=== PATIENT | female | born 1940 | race Caucasian/White ===

== ENCOUNTER 2017-08-16 08:56 | Inpatient (IN) | payer MEDICARE, OTHER ==
[2017-08-16] MEDS ORDERED: Magnesium Sulfate 2 GM/100 ML BAG ONE (09:10)
[2017-08-16] MEDS ORDERED: Lorazepam 2 MG/ML VIAL ONE (09:13)
[2017-08-16 09:16] LABS: pH, Arterial 7.26 (7.35-7.45)
[2017-08-16 09:17] LABS: Actual Bicarbonate (HCO3a) 28.9 mEq/L (22-26); Base Excess (BEa) 0.5 mEq/L (0 (+/-) 2.5); CO2 Tension 66.1 mmHg (35.0-45.0); O2 Tension (PaO2) 140.7 mmHg (80.0-100.0)
[2017-08-16 09:18] LABS: ALV-art Gradient 61.875 (0-20); Analyzer IN Cardio ER; Calcium, Ionized 1.2 mmol/L (1.12-1.30); Puncture Site RBA
[2017-08-16 09:32] LABS: #Basophils 0.1 thou/uL (0.0-0.2); #Lymphocytes 2.5 thou/uL (1.20-3.40); #Monocytes 1.1 thou/uL (0.11-0.59); #Neutrophils 13.1 thou/uL (1.40-6.50); %Basophils 0.4 % (0.0-1.0); %Eosinophils 0.1 % (0.0-10.0); %Lymphocytes 14.7 % (21.0-51.0); %Monocytes 6.8 % (0.0-10.0); %Neutrophils 77.9 % (42.0-75.0); Mean Corpuscular HGB CONC 31.8 g/dL (32.0-36.0); Mean Corpuscular Hemoglobin 29.8 pg (27.0-31.0); Mean Corpuscular Volume 93.7 fl (81.0-99.0); Mean Platelet Volume 8.1 fL (7.4-10.4); Platelet Count 305 thou/uL (130-400); RBC Distribution Width 12.4 % (11.5-14.5); Red Blood Cell (RBC) Count 4.02 mill/uL (4.20-5.40); White Blood Cell (WBC) Count 16.8 thou/uL (4.8-10.8)
[2017-08-16 09:57] LABS: Troponin I 0.015 ng/mL (< 0.028)
--- NOTE | 2017-08-16 10:13 | RAD ---
AP VIEW CHEST: Date: 08/16/17 HISTORY: 77-year-old female who presents with history of low oxygen saturation and history of COPD. COMPARISON: 07/20/16. FINDINGS: AP view of chest demonstrates calcification and ectasia of the aorta. There is some mild to moderate pulmonary vascular congestion seen. No evidence of effusions, pneumonia, or pneumothorax seen. IMPRESSION: Pulmonary vascular congestion. Otherwise, unremarkable AP view chest. POS: [facility]
[2017-08-16 10:16] LABS: CKMB 7.4 ng/mL (0-6.6)
[2017-08-16] MEDS ORDERED: Ondansetron HCl/PF 4 MG/2 ML Vial IVP PRN (10:45)
[2017-08-16] MEDS ORDERED: Acetaminophen 325 MG TAB PO PRN (10:45)
[2017-08-16 11:02] LABS: Calcium 9.2 mg/dL (7.8-10.44); Chloride 103 mmol/L (98-107); Sodium 140 mmol/L (136-145)
[2017-08-16] MEDS ORDERED: Dextrose 50% Abboject 50 ML SYRINGE SLOW IVP PRN (11:02)
[2017-08-16] MEDS ORDERED: Dextrose 5% in Water 1,000 ML IV PRN (11:02)
[2017-08-16 11:03] LABS: Globulin 2.5 g/dL (2.4-3.5); Glucose 184 mg/dL (83-110); Protein, Total 6.5 g/dL (6.0-8.3)
[2017-08-16 11:04] LABS: Anion Gap 14 mmol/L (10-20); Carbon Dioxide 27 mmol/L (23-31)
[2017-08-16 11:05] LABS: Bilirubin, Total 0.2 mg/dL (0.2-1.2)
[2017-08-16 11:06] LABS: Alkaline Phosphatase 48 U/L (40-150); Calc. Creatinine Clearance 0 mL/min (70-130); Estimated GFR-MDRD 59
[2017-08-16 11:07] LABS: BUN (Urea Nitrogen) 18 mg/dL (9.8-20.1)
[2017-08-16 11:08] LABS: AST (SGOT) 17 U/L (5-34)
[2017-08-16 11:09] LABS: ALT (SGPT) 10 U/L (8-55); CK (CPK) 166 U/L (29-168)
--- NOTE | 2017-08-16 12:09 | HP ---
PRIMARY CARE PROVIDER: Dr. Sharon Gabriel. CHIEF COMPLAINT: The patient [facility]. HISTORY OF PRESENT ILLNESS: The patient has been short of breath for approximately 2 weeks, progress monica. She was in [facility] 2 weeks ago, was discharged 11 days ago. Her shortne ss of breath is now severe, cannot walk more than 10-20 feet without giving out. She was given oral antibiotics and steroids 2 days ago by her primary care provider. She is too short of breath to eat. She denies any fever or chills, has a nonproductive cough. PAST MEDICAL HISTORY: Significant for chronic obstructive pulmonary disease, chronic respiratory curly lure with hypoxemia on home O2, diabetes mellitus type 2, coronary artery disease with stents in the past, dyslipidemia, tobacco abuse in the past, gastroesophageal reflux disease, glaucoma, abdominal a ortic aneurysm, aortic stenosis and colon polyps. PAST SURGICAL HISTORY: x3, hysterectomy, back surgery, lumbar fusion and cystoscopy. ALLERGIES: PENICILLIN causes urticaria. Keflex causes anaphylaxis. IODINE causes urticaria. LIPIT OR causes muscle aches. CURRENT MEDICATIONS: Paicines 10/325 one every 6 hours as needed for back pain, gabapentin 800 mg 3 taj es a day, glipizide 5 mg twice a day, Eliquis 5 mg twice a day, meclizine p.r.n., lovastatin 20 mg at bedtime, lisinopril 30 mg a day, aspirin 325 mg a day and Cartia 120 mg a day. She is currently on Levaquin 500 mg p.o. daily and prednisone 40 mg p.o. daily x2 days. FAMILY HISTORY: Mother had COPD, was placed on ventilators during her life. Father has heart diseas e. SOCIAL HISTORY: She smoked a pack a day for many years, has currently been off greater than 1 year. Denies alcohol. CODE STATUS: FULL CODE status. Surrogate decision makers are son and who were both at [facility]. REVIEW OF SYSTEMS: General: The patient is on BiPAP, sleepy; however, in discussion with her and he r in general. No fever or chills. No dizzy spells or fainting spells. Eyes: She has had no visual complaints. ENT: No ear pain or drainage. No nasal bleeding. No trouble with swallowing . Cardiac: She has had no chest pain or orthopnea. Respirations: See present illness. Gastrointe stinal: No nausea, vomiting, abdominal pain or diarrhea. Genitourinary: No hematuria or dysuria. Musculoskeletal: No significant swelling or pain in her arms and legs. She does have chronic back p ain for which she takes the Paicines. She also has some peripheral neuropathy for which she takes gabap entin 3 times a day. Neurologic: No strokes, seizures or focal weakness. Psychiatric: No anxiety, depression. Skin: No bruises, bleeding or rash. Heme/Lymph: No tender or swollen lymph nodes in axilla, inguinal or cervical area. PHYSICAL EXAMINATION: GENERAL: She is arousable, but falls asleep easily. VITAL SIGNS: Pulse 100-140, respirations 26-28. Initial O2 sat on room air 80%. HEENT: Pupils are equal and round. Extraocular movements are intact. Sclerae white. Tympanic memb ranes clear. Nose is clear. Oral mucous membranes are damp. Dental hygiene is grossly normal. NECK: No jugular venous distention, adenopathy or thyromegaly. CHEST: Markedly decreased breath sounds with no focal findings. She does have wheezes. HEART: Regular rate and rhythm. First and second heart sounds are clear. She has a 2/6 systolic mu rmur. ABDOMEN: Soft. Bowel sounds are normal. There is no hepatosplenomegaly, no mass, no rebound. Ther e is a faint bruit. EXTREMITIES: Reveal trace edema. No cyanosis or clubbing. PULSES: Carotid, radial pulses intact. Femoral and pedal pulses diminished. SKIN: Warm and dry without bruises or rash. HEME/LYMPH: No tender or swollen lymph nodes in axilla, inguinal or cervical area. LABORATORY AND X-RAY FINDINGS: Chest x-ray shows no cardiomegaly or hyperinflation, some evidence fo r pulmonary vascular congestion reviewed by me. White count 16.8, hemoglobin 12.0 and platelet count 305,000. Arterial blood gas pH 7.26, CO2 of 66, 40% O2 and chemistries are pending. Lactic acid is 3.0. CK-MB is elevated, but troponins normal. BNP is normal. Comp metabolic profile is pending. EKG reveals sinus tachycardia with some nonspecific ST-T abnormality. ADMITTING DIAGNOSES: 1. Acute on chronic respiratory failure with hypoxemia and hypercapnia. 2. Lactic acidosis. 3. Chronic obstructive pulmonary disease with acute exacerbation. 4. Paroxysmal atrial fibrillation. 5. Coronary artery disease. 6. Diabetes mellitus type 2. 7. Dyslipidemia. 8. History of tobacco abuse. 9. History of abdominal aortic aneurysm. PLAN: 1. Coronary care unit, currently on BiPAP, nebs and steroids. 2. Consult Dr. West. He is currently present with me in the Emergency Department. 3. Accu-Cheks and sliding scale. 4. Selected home medicines. ASSESSMENT: The patient is drowsy and falls asleep easily with her elevated CO2 and low pH, I worry about CO2 narcosis and need for intubation, which is the reason I have called Dr. West.
[2017-08-16] MEDS: Sodium Chloride 0.9% 1,000 ML IV SCH (12:55)
[2017-08-16] MEDS: Azithromycin 500 MG in Sodium Chloride 0.9% 250 ML 250 ML IVPB SCH (12:57)
[2017-08-16 13:22] LABS: Lactic Acid 2.5 mmol/L (0.5-2.2)
--- NOTE | 2017-08-16 13:59 | CON ---
DATE OF CONSULTATION: 08/16/2017 Thirty-five minutes critical care time. REASON FOR EVALUATION: Respiratory failure related to COPD exacerbation. HISTORY OF PRESENT ILLNESS: The patient is a 77-year-old female with longstanding COPD, who presents with 3-4 week history of increasing shortness of breath. Her family states that she was hospitalize d at [facility] a few weeks ago with shortness of breath. She had a cardiac work up which was negative. She did not see a long chain dyeing machine operator at that time. She saw her primary care physi susi last week, Dr. Gabriel, who prescribed prednisone and some antibiotics for cough and congestion. The patient states that this has not helped very much. She states that she last smoked over 1 year ago. History is obtained by speaking with the patient and family and reviewing records and the chart . PAST MEDICAL HISTORY: Severe COPD. Her baseline FEV1 is 0.81 liters which is 41% predicted and her baseline DLCO is 2.67 which is 15% predicted. PAST SURGICAL HISTORY: 1. . 2. Hysterectomy. 3. Back surgery. 4. Disk surgery. 5. Cystoscopy. SOCIAL HISTORY: Quit smoking about a year ago after smoking a pack per day for 50 years. Does not c onsume alcohol. FAMILY MEDICAL HISTORY: Remarkable for COPD. ALLERGIES: PENICILLIN, KEFLEX, IODINE, LIPITOR. MEDICATIONS PRIOR TO ADMISSION: These were reviewed and include prednisone, glipizide, amlodipine, C restor, Ranexa, hydrochlorothiazide/lisinopril, Levaquin, Prevacid, hydrocodone/APAP, gabapentin, flu ticasone, diltiazem, cetirizine, and Eliquis. REVIEW OF SYSTEMS: Twelve point review of systems is otherwise negative. PHYSICAL EXAMINATION: VITAL SIGNS: Pulse 83, blood pressure 120/75, O2 sat 98% on BiPAP, respiratory rate 18. GENERAL: She is awake, alert, conversant, underneath the BiPAP mask. HEENT: Pupils react. Sclerae are anicteric. Oropharynx is clear. NECK: No adenopathy or JVD. LUNGS: Coarse breath sounds bilaterally. No accessory muscle use on the BiPAP. CARDIAC: S1 and S2 regular without murmur. ABDOMEN: Obese, soft, nontender, nondistended. EXTREMITIES: No clubbing, cyanosis, or edema. LABORATORY DATA: White blood cells 16.8, hematocrit 37.6, platelet count 305, pH 7.26, pCO2 of 66, p O2 of 140 and that is on BiPAP 13/6. Her chemistry is pending. CK-MB is 7.4. BNP 35. X-ray shows hyperinflation, chronic interstitial changes, prominence of pulmonary artery vasculature. ASSESSMENT: 1. Chronic obstructive pulmonary disease exacerbation. 2. Acute on chronic respiratory failure requiring mechanical ventilation. 3. Other medical problems as described above. PLAN: The patient will be placed in the CCU. Continue noninvasive ventilation. Hopefully, she will need intubation. Her prognosis is guarded. Discussed this with the family.
[2017-08-16] MEDS: Lorazepam 2 MG/ML VIAL SLOW IVP PRN ×3 (14:50→21:34)
[2017-08-16 16:06] LABS: Actual Bicarbonate (HCO3a) 25.3 mEq/L (22-26); Base Excess (BEa) -1.2 mEq/L (0 (+/-) 2.5); CO2 Tension 50.8 mmHg (35.0-45.0); O2 Tension (PaO2) 157.9 mmHg (80.0-100.0); pH, Arterial 7.32 (7.35-7.45)
[2017-08-16 16:07] LABS: Calcium, Ionized 1.2 mmol/L (1.12-1.30); Puncture Site RRA
[2017-08-16] MEDS ORDERED: cloNIDine 0.1 MG TAB PO PRN (17:10)
[2017-08-16] MEDS ORDERED: Insulin Regular 300 UNITS/3 ML VIAL ONE (17:19)
[2017-08-16] MEDS: HumaLOG 300 UNITS/3 ML VIAL SC PRN (17:24)
[2017-08-16] MEDS: Budesonide 0.5 MG/2 ML NEB INH SCH (18:24)
[2017-08-16] MEDS: Arformoterol 15 MCG/2 ML NEB NEB SCH (18:28)
[2017-08-16] MEDS: Haloperidol Lactate 5 MG/ML VIAL IM PRN (19:57)
[2017-08-16] MEDS ORDERED: Sedation Protocol FS ONE (20:03)
[2017-08-16] MEDS ORDERED: DISCONTINUE PREVIOUS NARCOTIC PAIN MEDICATIONS AND BENZODIAZEPINES FS SCH (20:09)
[2017-08-16] MEDS ORDERED: Morphine 2 MG/ML SYRINGE SLOW IVP PRN (20:09)
[2017-08-16] MEDS ORDERED: Fentanyl CADD 250 ML IVPB SCH (20:11)
[2017-08-16] MEDS ORDERED: fentaNYL Citrate/PF 2,000 MCG in Sodium Chloride 0.9% 60 ML IV SCH (20:11)
[2017-08-16] MEDS ORDERED: Midazolam HCl 5 mg/5 ml Vial SLOW IVP SCH (20:15)
[2017-08-16] MEDS: Propofol 1,000 MG/100 ML VIAL IV PRN (20:35)
[2017-08-16 20:45] LABS: Actual Bicarbonate (HCO3a) 25.6 mEq/L (22-26); Base Excess (BEa) -1.3 mEq/L (0 (+/-) 2.5); CO2 Tension 53.3 mmHg (35.0-45.0); Calcium, Ionized 1.2 mmol/L (1.12-1.30); Hematocrit-ABG 37.4 % (36.0-47.0); Hemoglobin (Hb) 11.2 g/dL (12.0-16.0); O2 Tension (PaO2) 145.9 mmHg (80.0-100.0); Puncture Site RBRACH
[2017-08-16 20:46] LABS: ALV-art Gradient 72.675 (0-20)
--- NOTE | 2017-08-16 20:57 | RAD ---
1 VIEW CHEST: Date: 08/16/17 HISTORY: Respiratory distress. Ventilated patient. COMPARISON: 08/16/17. FINDINGS: Interval placement of endotracheal tube just beyond the level of the clavicles. Nasogastric tube exte nds beyond the diaphragm. Distal tip is not seen. Stable configuration of the cardiac silhouette. Sta ble aeration of the lung parenchyma. IMPRESSION: Lines and tubes as above. POS: [facility]
[2017-08-16] MEDS: Rosuvastatin 10 MG TAB PO SCH (22:14)
[2017-08-16] MEDS: Amlodipine 5 MG TAB PO SCH (22:15)
[2017-08-16] MEDS: Lisinopril/Hydrochlorothiazide 20 mg/12.5 mg Tablet PO SCH (22:19)
--- NOTE | 2017-08-16 22:37 | OP ---
This occurred at 8:30 p.m. separate from critical care time earlier today. PROCEDURE: Endotracheal intubation. PREOPERATIVE DIAGNOSIS: Respiratory failure, on BiPAP - patient was pulling out medical equipment an d making it difficult to treat her underlying chronic obstructive pulmonary disease. ANESTHESIA: A 4 mg of Versed was given prior to the intubation. PROCEDURE IN DETAIL: Using GlideScope visualization, the patient was intubated on the first attempt with a 7.5 endotracheal tube. Upon insertion of the airway, she became acutely agitated. Shortly af terwards, she began experiencing bleeding out of both ears which I assume was probably partially rupt ured tympanic membrane from a large Valsalva maneuver. Gauze pads were placed in the ear canals. Th e patient will be kept intubated for the time being. I spoke with the patient's family regarding the need to intubate or keep her sedated. I also spoke with the son about the ear bleeding.
[2017-08-17] MEDS: Propofol 1,000 MG/100 ML VIAL IV PRN ×4 (00:04→16:44)
[2017-08-17] MEDS: HumaLOG 300 UNITS/3 ML VIAL SC PRN ×3 (01:30→22:01)
[2017-08-17] MEDS: Sodium Chloride 0.9% 1,000 ML IV SCH ×2 (01:34→16:43)
[2017-08-17 03:41] LABS: #Lymphocytes 0.8 thou/uL (1.20-3.40); #Monocytes 0.4 thou/uL (0.11-0.59); #Neutrophils 12.2 thou/uL (1.40-6.50); %Eosinophils 0.2 % (0.0-10.0); %Lymphocytes 5.8 % (21.0-51.0); %Monocytes 2.9 % (0.0-10.0); %Neutrophils 91.1 % (42.0-75.0); Hemoglobin 10.8 g/dL (12.0-16.0); Mean Corpuscular HGB CONC 32.9 g/dL (32.0-36.0); Mean Corpuscular Hemoglobin 30.8 pg (27.0-31.0); Mean Corpuscular Volume 93.4 fl (81.0-99.0); Mean Platelet Volume 6.9 fL (7.4-10.4); Platelet Count 252 thou/uL (130-400); RBC Distribution Width 12.1 % (11.5-14.5); White Blood Cell (WBC) Count 13.4 thou/uL (4.8-10.8)
[2017-08-17 04:04] LABS: Anion Gap 15 mmol/L (10-20); BUN (Urea Nitrogen) 19 mg/dL (9.8-20.1); Calc. Creatinine Clearance 79 mL/min (70-130); Carbon Dioxide 25 mmol/L (23-31); Chloride 104 mmol/L (98-107); Estimated GFR-MDRD 76; Glucose 210 mg/dL (83-110); Potassium 3.7 mmol/L (3.5-5.1); Sodium 140 mmol/L (136-145)
[2017-08-17 05:29] LABS: Actual Bicarbonate (HCO3a) 27.4 mEq/L (22-26); Base Excess (BEa) 1.6 mEq/L (0 (+/-) 2.5); Calcium, Ionized 1.2 mmol/L (1.12-1.30); Hematocrit-ABG 33.5 % (36.0-47.0); Hemoglobin (Hb) 10.3 g/dL (12.0-16.0); O2 Tension (PaO2) 95.3 mmHg (80.0-100.0); Puncture Site RBRACH; pH, Arterial 7.37 (7.35-7.45)
--- NOTE | 2017-08-17 07:36 | PRG ---
DATE OF SERVICE: 08/17/2017 Thirty-five minutes critical care time. SUBJECTIVE: The patient remains intubated on mechanical ventilation. She is requiring intermittent paralysis for profound agitation. OBJECTIVE: VITAL SIGNS: On exam, temperature is 97.8, pulse 74, blood pressure ranging between systolic 97 to s ystolic 142. A 24-hour intake 492, output 865. HEENT EXAM: Unremarkable. Oropharynx clear. NECK: No JVD. LUNGS: Expiratory wheezing anteriorly. CARDIOVASCULAR: S1 and S2, regular. ABDOMEN: Soft. EXTREMITIES: No edema. Peak pressures on ventilator around 42, plateau pressures around 20, requiring expiratory time of dorothy und 1:7. LABORATORY DATA: Sodium 140, potassium 3.7, chloride 104, CO2 of 25, BUN 19, creatinine 0.7, glucose 210, pH 7.37, pCO2 of 49, pO2 of 95 on SIMV rate 14, tidal volume 500, PEEP 5, pressure support 10, FiO2 40%. White blood cell count 13.4, hematocrit 32.7, platelet count 252. ASSESSMENT: 1. Chronic obstructive pulmonary disease with severe exacerbation. 2. Acute respiratory failure, requiring mechanical ventilation. 3. Diabetes mellitus with hyperglycemia, worsened by steroids. PLAN: 1. I have decreased her tidal volume. 2. Initiate tube feeds. 3. Continue steroids and nebulization treatments. Prognosis is guarded. I spoke with the family dion murphy.
[2017-08-17] MEDS: Budesonide 0.5 MG/2 ML NEB INH SCH ×2 (08:18→18:36)
[2017-08-17] MEDS: Arformoterol 15 MCG/2 ML NEB NEB SCH ×2 (08:34→18:36)
--- NOTE | 2017-08-17 08:48 | PDOC.PN ---
- Subjective Encounter Start Date: 08/17/17 Encounter Start Time: 08:46 Subjective: intubated, sedated - Objective MAR Reviewed: Yes Vital Signs & Weight: Vital Signs (12 hours) Temp Pulse Resp Pulse Ox 08/17/17 08:33 78 16 97 08/17/17 08:18 76 08/17/17 04:55 74 16 97 08/17/17 04:00 97.8 F 08/17/17 02:14 77 08/17/17 02:13 77 14 98 08/17/17 02:00 14 08/17/17 00:52 76 14 100 08/17/17 00:00 98.2 F 100 08/16/17 22:19 88 08/16/17 22:18 88 08/16/17 22:17 89 14 98 08/16/17 22:15 102 H Weight Weight 172 lb 13.478 oz Most Recent Monitor Data Heart Rate from ECG 80 NIBP 143/66 NIBP BP-Mean 85 Respiration from ECG 21 SpO2 100 I&O: 08/16/17 08/17/17 08/18/17 06:59 06:59 06:59 Intake Total 492 Output Total 895 Balance -403 Result Diagrams: 08/17/17 03:04 08/17/17 03:04 Additional Labs: Accuchecks 08/17/17 08/17/17 08/16/17 05:46 01:30 17:11 POC Glucose 181 H 216 H 236 H Radiology Reviewed by me: Yes (cxr- ET tube, no infiltrate) Phys Exam - Physical Examination Constitutional: NAD Neck: no JVD distant coarse BS Cardiovascular: RRR, no significant murmur Gastrointestinal: soft, no distention, positive bowel sounds Musculoskeletal: edema present Dx/Plan (1) Acute respiratory failure with hypoxia and hypercapnia Code(s): J96.01 - ACUTE RESPIRATORY FAILURE WITH HYPOXIA; J96.02 - ACUTE RESPIRATORY FAILURE WITH HYPERCAPNIA Status: Acute (2) COPD exacerbation Code(s): J44.1 - CHRONIC OBSTRUCTIVE PULMONARY DISEASE W (ACUTE) EXACERBATION Status: Acute (3) Hypertension Code(s): I10 - ESSENTIAL (PRIMARY) HYPERTENSION Status: Chronic Qualifiers: Hypertension type: essential hypertension Qualified Code(s): I10 - Essential (primary) hypertension (4) CAD (coronary artery disease) Code(s): I25.10 - ATHSCL HEART DISEASE OF [place] CORONARY ARTERY W/O ANG PCTRS Status: Chronic Qualifiers: Coronary Disease-Associated Artery/Lesion type: [place] artery [place] vs. transplanted heart: [place] heart Associated angina: without angina Qualified Code(s): I25.10 - Atherosclerotic heart disease of [place] coronary artery without angina pectoris (5) Chronic pain Code(s): G89.29 - OTHER CHRONIC PAIN Status: Chronic Qualifiers: Chronic pain type: chronic pain syndrome Qualified Code(s): G89.4 - Chronic pain syndrome (6) DM type 2 (diabetes mellitus, type 2) Status: Chronic Qualifiers: Diabetes mellitus complication status: without complication Diabetes mellitus extermination inspector insulin use: without extermination inspector use Qualified Code(s): E11.9 - Type 2 diabetes mellitus without complications - Plan failed BIPAP, required intubation, ventilation -: cont nebs, steroids, antibx -: discuss with telegraph lineman * .
[2017-08-17] MEDS ORDERED: Ciprofloxacin HCL/Dexameth Otic Drops 7.5 ml Bottle L EAR SCH (09:00)
[2017-08-17] MEDS ORDERED: Ciprofloxacin HCL/Dexameth Otic Drops 7.5 ml Bottle R EAR SCH (09:00)
[2017-08-17] MEDS ORDERED: Apixaban 5 MG TAB PO SCH (09:00)
[2017-08-17] MEDS ORDERED: Spiriva 18 MCG CAP (Box of 5 Caps) INH SCH (09:00)
--- NOTE | 2017-08-17 09:05 | RAD ---
PORTABLE CHEST 1 VIEW: DATE: 08/17/17. TIME: 5:34 a.m. HISTORY: Respiratory failure. FINDINGS: Comparison is made with the exam of 08/16/17. Endotracheal and nasogastric tubes remain in place. The heart size is normal. No lobar consolidatio n, pneumothoraces, brandan pulmonary edema, or large effusions are seen. POS: [facility]
[2017-08-17] MEDS: glipiZIDE 5 MG TAB PO SCH (09:35)
[2017-08-17] MEDS ORDERED: Pantoprazole 40 MG GRANULES PACKET PO SCH (10:00)
[2017-08-17] MEDS: Lisinopril/Hydrochlorothiazide 20 mg/12.5 mg Tablet PO SCH ×2 (10:01→21:42)
[2017-08-17] MEDS: Lorazepam 2 MG/ML VIAL SLOW IVP PRN (12:22)
[2017-08-17] MEDS: Azithromycin 500 MG in Sodium Chloride 0.9% 250 ML 250 ML IVPB SCH (12:32)
[2017-08-17] MEDS ORDERED: Pancrelipase DR 12000 1 CAP FS PRN (19:22)
[2017-08-17] MEDS ORDERED: Sodium Bicarbonate Tab 325 MG TAB PER TUBE PRN (19:22)
[2017-08-17] MEDS ORDERED: DEXAMETHASONE 0.1% FS SCH (21:00)
[2017-08-17] MEDS: Rosuvastatin 10 MG TAB PO SCH (21:41)
[2017-08-17] MEDS: Amlodipine 5 MG TAB PO SCH (21:46)
[2017-08-17] MEDS ORDERED: Ciprofloxacin 0.3% Ophth Drops 2.5 ml Bottle FS SCH (22:00)
[2017-08-18] MEDS ORDERED: Sodium Chloride 0.9% 250 ML IV SCH ×2 (01:00→01:15)
[2017-08-18] MEDS: Propofol 1,000 MG/100 ML VIAL IV PRN ×3 (01:44→19:06)
[2017-08-18 04:31] LABS: #Eosinphils 0.1 thou/uL (0.0-0.7); #Lymphocytes 0.6 thou/uL (1.20-3.40); #Monocytes 0.9 thou/uL (0.11-0.59); #Neutrophils 16.1 thou/uL (1.40-6.50); %Basophils 0.1 % (0.0-1.0); %Eosinophils 0.4 % (0.0-10.0); %Lymphocytes 3.2 % (21.0-51.0); %Monocytes 5.2 % (0.0-10.0); %Neutrophils 91.2 % (42.0-75.0); Hemoglobin 10.1 g/dL (12.0-16.0); Mean Corpuscular HGB CONC 33.1 g/dL (32.0-36.0); Mean Corpuscular Hemoglobin 30.8 pg (27.0-31.0); Mean Corpuscular Volume 93.1 fl (81.0-99.0); Mean Platelet Volume 7.2 fL (7.4-10.4); Platelet Count 272 thou/uL (130-400); RBC Distribution Width 12.1 % (11.5-14.5); Red Blood Cell (RBC) Count 3.28 mill/uL (4.20-5.40); White Blood Cell (WBC) Count 17.6 thou/uL (4.8-10.8)
[2017-08-18 04:56] LABS: Anion Gap 13 mmol/L (10-20); BUN (Urea Nitrogen) 29 mg/dL (9.8-20.1); Calc. Creatinine Clearance 52 mL/min (70-130); Calcium 9.2 mg/dL (7.8-10.44); Carbon Dioxide 26 mmol/L (23-31); Chloride 104 mmol/L (98-107); Estimated GFR-MDRD 47; Glucose 187 mg/dL (83-110); Sodium 139 mmol/L (136-145)
[2017-08-18] MEDS: Sodium Chloride 0.9% 1,000 ML IV SCH ×2 (05:36→19:07)
[2017-08-18] MEDS: HumaLOG 300 UNITS/3 ML VIAL SC PRN ×3 (05:58→21:48)
[2017-08-18 07:00] LABS: ALV-art Gradient 167.875 (0-20); Actual Bicarbonate (HCO3a) 26.9 mEq/L (22-26); Base Excess (BEa) 0.8 mEq/L (0 (+/-) 2.5); CO2 Tension 50.5 mmHg (35.0-45.0); Calcium, Ionized 1.2 mmol/L (1.12-1.30); Hematocrit-ABG 32.3 % (36.0-47.0); Hemoglobin (Hb) 9.7 g/dL (12.0-16.0); O2 Tension (PaO2) 52.2 mmHg (80.0-100.0); Puncture Site RRA; pH, Arterial 7.34 (7.35-7.45)
--- NOTE | 2017-08-18 07:42 | PRG ---
DATE OF SERVICE: 08/18/2017 She remains intubated on mechanical ventilation. She will wake up and is very agitated. PHYSICAL EXAMINATION: VITAL SIGNS: Temperature 98.5, pulse 80, blood pressure 112/58, 24 hour intake 1201, total output 821. HEENT: Unremarkable. NECK: No JVD. LUNGS: Much less wheezing compared to yesterday. CARDIAC: S1 and S2 regular. ABDOMEN: Soft. EXTREMITIES: No edema. LABORATORY DATA: White blood cell count 17.6, hemoglobin 10, hematocrit 30, platelet count 272. PH 7.34, pCO2 of 50, pO2 of 52. Sodium 139, potassium 4, chloride 104, CO2 26, BUN 29, creatinine 1.1, glucose 187. Her chest x-ray demonstrates hyperinflation. Endotracheal tube is in good position. NG tube in good position. ASSESSMENT: 1. Chronic obstructive pulmonary disease with exacerbation. 2. Acute respiratory failure requiring mechanical ventilation. 3. Diabetes mellitus, aggravated by steroids. PLAN: Adjust ventilatory parameters. I think she needs to be intubated at least one more day. We will continue her on the antibiotic drops. She does not need to be on Levaquin and Zithromax, so I will stop the Zithromax. 30min cc time MTDD
--- NOTE | 2017-08-18 08:13 | RAD ---
PORTABLE CHEST ONE VIEW: Date: 08-18-17 Time: 5:14 a.m. History: Respiratory failure. FINDINGS/IMPRESSION: Comparison made with exam from the previous day. No significant interval change is seen since the pre vious day's exam. POS: [facility]
[2017-08-18] MEDS: Budesonide 0.5 MG/2 ML NEB INH SCH ×2 (08:14→18:21)
[2017-08-18] MEDS: Arformoterol 15 MCG/2 ML NEB NEB SCH ×2 (08:14→18:20)
--- NOTE | 2017-08-18 09:06 | PDOC.PN ---
- Subjective Encounter Start Date: 08/18/17 Encounter Start Time: 09:05 Subjective: intubated,sedated - Objective MAR Reviewed: Yes Vital Signs & Weight: Vital Signs (12 hours) Temp Pulse Resp BP 08/18/17 08:15 86 130/73 08/18/17 08:00 19 08/18/17 07:00 98.8 F 08/18/17 04:00 98.5 F 22 H 08/18/17 03:52 94 111/56 L 08/18/17 02:00 22 H 08/18/17 00:30 97 95/48 L 08/18/17 00:00 98.8 F 08/17/17 22:11 100 110/56 L 08/17/17 21:46 97 119/58 L 08/17/17 21:42 97 119/58 L Weight Admit Weight 172 lb Weight 172 lb 0.074 oz Most Recent Monitor Data Heart Rate from ECG 95 NIBP 113/69 NIBP BP-Mean 91 Respiration from ECG 19 SpO2 96 I&O: 08/17/17 08/18/17 08/19/17 06:59 06:59 06:59 Intake Total 492 2948.2 90.6 Output Total 895 821 55 Balance -403 2127.2 35.6 Result Diagrams: 08/18/17 03:22 08/18/17 03:22 Additional Labs: Accuchecks 08/18/17 08/17/17 08/17/17 05:58 22:01 17:19 POC Glucose 198 H 200 H 126 H 08/17/17 13:09 POC Glucose 152 H Phys Exam - Physical Examination Neck: no JVD decreased, but clear of wheezes , etc Cardiovascular: RRR, no significant murmur Gastrointestinal: soft, non-tender, positive bowel sounds Musculoskeletal: no edema Dx/Plan (1) Acute respiratory failure with hypoxia and hypercapnia Code(s): J96.01 - ACUTE RESPIRATORY FAILURE WITH HYPOXIA; J96.02 - ACUTE RESPIRATORY FAILURE WITH HYPERCAPNIA Status: Acute (2) COPD exacerbation Code(s): J44.1 - CHRONIC OBSTRUCTIVE PULMONARY DISEASE W (ACUTE) EXACERBATION Status: Acute (3) Hypertension Code(s): I10 - ESSENTIAL (PRIMARY) HYPERTENSION Status: Chronic Qualifiers: Hypertension type: essential hypertension Qualified Code(s): I10 - Essential (primary) hypertension (4) CAD (coronary artery disease) Code(s): I25.10 - ATHSCL HEART DISEASE OF [place] CORONARY ARTERY W/O ANG PCTRS Status: Chronic Qualifiers: Coronary Disease-Associated Artery/Lesion type: [place] artery [place] vs. transplanted heart: [place] heart Associated angina: without angina Qualified Code(s): I25.10 - Atherosclerotic heart disease of [place] coronary artery without angina pectoris (5) Chronic pain Code(s): G89.29 - OTHER CHRONIC PAIN Status: Chronic Qualifiers: Chronic pain type: chronic pain syndrome Qualified Code(s): G89.4 - Chronic pain syndrome (6) DM type 2 (diabetes mellitus, type 2) Status: Chronic Qualifiers: Diabetes mellitus complication status: without complication Diabetes mellitus director long term care insulin use: without usp use Qualified Code(s): E11.9 - Type 2 diabetes mellitus without complications - Plan cont to be vent dependant, ABG cont CO2 ret -: cont nebs, levaquin, steroids -: vent per pulmonology -: cont accu/ss/ etc * .
[2017-08-18] MEDS: Lisinopril/Hydrochlorothiazide 20 mg/12.5 mg Tablet PO SCH ×2 (09:45→21:35)
[2017-08-18] MEDS: Pantoprazole 40 MG GRANULES PACKET PO SCH (09:45)
[2017-08-18] MEDS: Ciprofloxacin 0.3% Ophth Drops 2.5 ml Bottle FS SCH ×2 (09:46→21:37)
[2017-08-18] MEDS: glipiZIDE 5 MG TAB PO SCH (09:46)
[2017-08-18] MEDS: Rosuvastatin 10 MG TAB PO SCH (21:34)
[2017-08-18] MEDS: Amlodipine 5 MG TAB PO SCH (21:34)
[2017-08-19] MEDS: Propofol 1,000 MG/100 ML VIAL IV PRN (00:58)
[2017-08-19] MEDS: HumaLOG 300 UNITS/3 ML VIAL SC PRN ×2 (05:11→21:21)
[2017-08-19 05:15] LABS: Anion Gap 11 mmol/L (10-20); BUN (Urea Nitrogen) 30 mg/dL (9.8-20.1); Calc. Creatinine Clearance 67 mL/min (70-130); Calcium 8.9 mg/dL (7.8-10.44); Carbon Dioxide 29 mmol/L (23-31); Chloride 101 mmol/L (98-107); Estimated GFR-MDRD 64; Glucose 235 mg/dL (83-110); Potassium 3.7 mmol/L (3.5-5.1); Sodium 137 mmol/L (136-145)
[2017-08-19 06:04] LABS: Band 9 % (5-11); Hemoglobin 10.1 g/dL (12.0-16.0); Lymphocytes 6 % (21-51); MDiff Complete? YES; Mean Corpuscular HGB CONC 33.4 g/dL (32.0-36.0); Mean Corpuscular Hemoglobin 30.5 pg (27.0-31.0); Mean Corpuscular Volume 91.3 fl (81.0-99.0); Metamyelocyte 1 % (0-0); Monocytes 5 % (0-10); Neutrophil 74 % (42-75); PLT Morphology Comment Appears Adequate; Platelet Count 243 thou/uL (130-400); RBC Distribution Width 11.9 % (11.5-14.5); RBC Morphology Normal; Reactive Lymphocytes 5 % (0-10); White Blood Cell (WBC) Count 14.4 thou/uL (4.8-10.8)
[2017-08-19] MEDS: Arformoterol 15 MCG/2 ML NEB NEB SCH ×2 (06:42→18:13)
[2017-08-19] MEDS: Budesonide 0.5 MG/2 ML NEB INH SCH ×2 (06:43→18:13)
[2017-08-19] MEDS ORDERED: DC Sedation Protocol FS ONE (07:21)
--- NOTE | 2017-08-19 07:32 | PRG ---
DATE OF SERVICE: 08/19/2017 Thirty-five minutes critical care time. The patient remains intubated on mechanical ventilation. She has been on CPAP all night. PHYSICAL EXAMINATION: VITAL SIGNS: Temperature is 100.3, pulse 90, blood pressure 140/64. 24 hour intake 1124, output 122 0. HEENT: Unremarkable. NECK: No adenopathy or JVD. CHEST: Fairly clear without wheezing. CARDIAC: S1 and S2 regular. ABDOMEN: Soft. EXTREMITIES: No edema except in the arms. LABORATORY DATA: White blood count 14, hematocrit 30, platelet count 243. Sodium 137, potassium 3.7 , chloride 101, CO2 29, BUN 30, creatinine 0.8, glucose 235. ASSESSMENT: Chronic obstructive pulmonary disease with exacerbation. PLAN: She has been on CPAP for 24 hours, I think that she is probably okay to extubate. We will ary n on doing so this morning. Her sedation will be stopped. She will be kept in the ICU for at least today.
[2017-08-19 07:41] LABS: Base Excess (BEa) 0.1 mEq/L (0 (+/-) 2.5); Calcium, Ionized 1.2 mmol/L (1.12-1.30); Hemoglobin (Hb) 10.9 g/dL (12.0-16.0); O2 Tension (PaO2) 85.6 mmHg (80.0-100.0); Puncture Site RRA; pH, Arterial 7.44 (7.35-7.45)
--- NOTE | 2017-08-19 08:07 | RAD ---
SINGLE VIEW OF THE CHEST: Comparison: 08-18-17 History: Ventilated patient with respiratory failure. FINDINGS: Single view of the chest shows a cardiomediastinal silhouette which is upper limits of normal in size with atherosclerotic calcifications in the aorta. Endotracheal tube is unchanged in position. There is no evidence of consolidation, mass, or pleural effusion. IMPRESSION: No evidence of acute cardiopulmonary disease. POS: [facility]
[2017-08-19] MEDS: Ciprofloxacin 0.3% Ophth Drops 2.5 ml Bottle FS SCH (10:00)
[2017-08-19] MEDS: glipiZIDE 5 MG TAB PO SCH (10:02)
[2017-08-19] MEDS: Lisinopril/Hydrochlorothiazide 20 mg/12.5 mg Tablet PO SCH ×2 (10:02→20:36)
[2017-08-19] MEDS: Pantoprazole 40 MG GRANULES PACKET PO SCH (10:07)
--- NOTE | 2017-08-19 10:57 | PDOC.PN ---
- Subjective Encounter Start Date: 08/19/17 Encounter Start Time: 10:56 Subjective: extubated, no sob - Objective MAR Reviewed: Yes Vital Signs & Weight: Vital Signs (12 hours) Temp Pulse Resp BP Pulse Ox 08/19/17 10:41 86 21 H 98 08/19/17 10:02 99 150/59 H 08/19/17 07:30 93 L 08/19/17 06:43 99 150/59 H 08/19/17 06:40 100 36 H 96 08/19/17 04:00 98.8 F 08/19/17 03:14 83 145/71 H 08/19/17 00:26 101 H 136/67 08/19/17 00:00 100.3 F H Weight Admit Weight 172 lb Weight 174 lb 9.698 oz Most Recent Monitor Data Heart Rate from ECG 88 NIBP 147/67 NIBP BP-Mean 81 Respiration from ECG 19 SpO2 93 I&O: 08/18/17 08/19/17 08/20/17 06:59 06:59 06:59 Intake Total 2948.2 2475.6 Output Total 821 1558 Balance 2127.2 917.6 Result Diagrams: 08/19/17 04:31 08/19/17 04:31 Additional Labs: Accuchecks 08/19/17 08/18/17 08/18/17 04:57 21:48 15:35 POC Glucose 232 H 230 H 118 H 08/18/17 11:57 POC Glucose 181 H Phys Exam - Physical Examination Constitutional: NAD Neck: no JVD clear, decreased Cardiovascular: RRR, no significant murmur Gastrointestinal: soft, positive bowel sounds Musculoskeletal: edema present Dx/Plan (1) Acute respiratory failure with hypoxia and hypercapnia Code(s): J96.01 - ACUTE RESPIRATORY FAILURE WITH HYPOXIA; J96.02 - ACUTE RESPIRATORY FAILURE WITH HYPERCAPNIA Status: Resolved (2) COPD exacerbation Code(s): J44.1 - CHRONIC OBSTRUCTIVE PULMONARY DISEASE W (ACUTE) EXACERBATION Status: Acute (3) Hypertension Code(s): I10 - ESSENTIAL (PRIMARY) HYPERTENSION Status: Chronic Qualifiers: Hypertension type: essential hypertension Qualified Code(s): I10 - Essential (primary) hypertension (4) CAD (coronary artery disease) Code(s): I25.10 - ATHSCL HEART DISEASE OF [place] CORONARY ARTERY W/O ANG PCTRS Status: Chronic Qualifiers: Coronary Disease-Associated Artery/Lesion type: [place] artery [place] vs. transplanted heart: [place] heart Associated angina: without angina Qualified Code(s): I25.10 - Atherosclerotic heart disease of [place] coronary artery without angina pectoris (5) Chronic pain Code(s): G89.29 - OTHER CHRONIC PAIN Status: Chronic Qualifiers: Chronic pain type: chronic pain syndrome Qualified Code(s): G89.4 - Chronic pain syndrome (6) DM type 2 (diabetes mellitus, type 2) Status: Chronic Qualifiers: Diabetes mellitus complication status: without complication Diabetes mellitus halfway insulin use: without halfway use Qualified Code(s): E11.9 - Type 2 diabetes mellitus without complications - Plan extubated, stable resp status -: cont antibx, nebs, steroids -: cont asa, amlodipine, lisinopril, cardizem * .
[2017-08-19] MEDS: Sodium Chloride 0.9% 1,000 ML IV SCH ×2 (12:19→23:55)
[2017-08-19 13:08] VITALS: BMI 29.0
[2017-08-19] MEDS: Amlodipine 5 MG TAB PO SCH (20:36)
[2017-08-19] MEDS: Rosuvastatin 10 MG TAB PO SCH (20:36)
[2017-08-19] MEDS: Labetalol HCl 100 MG/20 ML VIAL SLOW IVP PRN (21:13)
[2017-08-20] MEDS: hydrALAZINE 20 MG/ML VIAL SLOW IVP PRN ×2 (01:03→21:19)
[2017-08-20] MEDS: Lorazepam 2 MG/ML VIAL SLOW IVP PRN (01:33)
[2017-08-20 02:28] LABS: Actual Bicarbonate (HCO3a) 29.5 mEq/L (22-26); CO2 Tension 55.5 mmHg (35.0-45.0); O2 Tension (PaO2) 59.5 mmHg (80.0-100.0); pH, Arterial 7.34 (7.35-7.45)
[2017-08-20 02:29] LABS: Base Excess (BEa) 2.8 mEq/L (0 (+/-) 2.5); Hematocrit-ABG 37.9 % (36.0-47.0); Hemoglobin (Hb) 11.7 g/dL (12.0-16.0)
[2017-08-20] MEDS: Haloperidol Lactate 5 MG/ML VIAL IM PRN (02:44)
[2017-08-20 02:47] LABS: ALV-art Gradient 127.805 (0-20); Calcium, Ionized 1.2 mmol/L (1.12-1.30); Puncture Site LRA
[2017-08-20] MEDS: Labetalol HCl 100 MG/20 ML VIAL SLOW IVP PRN (05:07)
[2017-08-20 05:14] LABS: Anion Gap 14 mmol/L (10-20); BUN (Urea Nitrogen) 31 mg/dL (9.8-20.1); Calc. Creatinine Clearance 78 mL/min (70-130); Calcium 9.3 mg/dL (7.8-10.44); Carbon Dioxide 30 mmol/L (23-31); Chloride 101 mmol/L (98-107); Estimated GFR-MDRD 74; Glucose 228 mg/dL (83-110); Potassium 4.2 mmol/L (3.5-5.1); Sodium 141 mmol/L (136-145)
[2017-08-20 05:28] LABS: Band 6 % (5-11); Hemoglobin 11.6 g/dL (12.0-16.0); Lymphocytes 6 % (21-51); MDiff Complete? YES; Mean Corpuscular HGB CONC 32.9 g/dL (32.0-36.0); Mean Corpuscular Volume 91.1 fl (81.0-99.0); Mean Platelet Volume 6.6 fL (7.4-10.4); Monocytes 2 % (0-10); Neutrophil 86 % (42-75); Platelet Count 363 thou/uL (130-400); RBC Distribution Width 11.9 % (11.5-14.5); Red Blood Cell (RBC) Count 3.87 mill/uL (4.20-5.40); White Blood Cell (WBC) Count 23.8 thou/uL (4.8-10.8)
[2017-08-20] MEDS: Budesonide 0.5 MG/2 ML NEB INH SCH ×2 (06:49→18:26)
--- NOTE | 2017-08-20 07:26 | PDOC.PULCC ---
CCU Progress Note: Subj/Obj - Subjective Date: 08/20/17 Time: 07:24 Narrative: Appears to have decompensated last night. Now on BiPAP/ST - ROS Review of Systems: shortness of breath - Objective Allergies/Adverse Reactions: Allergies Allergy/AdvReac Type Severity Reaction Status Date / Time cephalexin monohydrate Allergy Verified 07/21/16 02:02 [From Keflex] iodine Allergy Verified 07/21/16 02:02 Penicillins Allergy Verified 07/21/16 02:02 atorvastatin calcium AdvReac Verified 07/21/16 02:02 [From Lipitor] Medications: Current Medications Acetaminophen (Tylenol) 650 mg PO Q4H PRN PRN Reason: Headache/Fever or Pain Albuterol/Ipratropium (Duoneb) 3 ml NEB Q2H PRN PRN Reason: SOB &/or Wheezing Albuterol/Ipratropium (Duoneb) 3 ml NEB [id number] ANGELIC Amlodipine Besylate (Norvasc) 5 mg PO HS [facility] Last Admin: 08/19/17 20:36 Dose: Not Given Lipase/Protease/Amylase ([place] [id number]) 1 cap FS .PER PROTOCOL PRN PRN Reason: TUBE OCCLUSION PROTOCOL Arformoterol Tartrate (Brovana) 15 mcg NEB BID-RT [facility] Last Admin: 08/19/17 18:13 Dose: 15 mcg Aspirin (Aspirin Chewable) 81 mg PO DAILY [facility] Last Admin: 08/19/17 10:01 Dose: Not Given Budesonide (Pulmicort Neb Solution) 0.5 mg INH BID-RT [facility] Last Admin: 08/20/17 06:49 Dose: 0.5 mg Clonidine (Catapres) 0.1 mg PO BID PRN PRN Reason: Hypertension Dextrose/Water (Dextrose 50%) 25 gm SLOW IVP PRN PRN PRN Reason: Hypoglycemia Diltiazem HCl (Cardizem) 30 mg PO Q6HR [facility] Last Admin: 08/20/17 06:35 Dose: Not Given Glipizide (Glucotrol) 5 mg PO DAILY [facility] Last Admin: 08/19/17 10:02 Dose: Not Given Glucagon (Glucagon) 1 mg IM PRN PRN PRN Reason: Hypoglycemia Lisinopril/HCTZ (Prinizide 20-12.5) 1 tab PO BID [facility] Last Admin: 08/19/17 20:36 Dose: Not Given Hydralazine HCl (Apresoline) 10 mg SLOW IVP Q4H PRN PRN Reason: SBP>170 Last Admin: 08/20/17 01:03 Dose: 10 mg Sodium Chloride (Normal Saline 0.9%) 1,000 mls @ 70 mls/hr IV .[id number] [facility] Last Admin: 08/19/17 23:55 Dose: 1,000 mls Dextrose/Water (D5w) 1,000 mls @ 0 mls/hr IV .Q0M PRN; As Directed PRN Reason: Hypoglycemia Levofloxacin 750 mg/ Device 150 mls @ 100 mls/hr IVPB Q24HR [facility] Last Admin: 08/19/17 10:04 Dose: 150 mls Dexmedetomidine HCl 200 mcg/ (Sodium Chloride) 50 mls @ 0 mls/hr IVPB INF ANGELIC; Per Protocol PRN Reason: Protocol Insulin Human Lispro (Humalog) 0 units SC .MILD SLIDING SCALE PRN PRN Reason: Mild Correctional Scale Last Admin: 08/19/17 21:21 Dose: 3 unit Labetalol HCl (Normodyne) 20 mg SLOW IVP Q4H PRN PRN Reason: SBP>180 Last Admin: 08/20/17 05:07 Dose: 20 mg Methylprednisolone Sodium Succinate (Solu-Medrol) 20 mg IVP Q6HR [facility] Last Admin: 08/19/17 23:50 Dose: 20 mg Ondansetron HCl (Zofran) 4 mg IVP Q6H PRN PRN Reason: Nausea/Vomiting Pantoprazole Sodium (Protonix) 40 mg PO DAILY [facility] Last Admin: 08/19/17 10:07 Dose: Not Given Rosuvastatin Calcium (Crestor) 20 mg PO HS [facility] Last Admin: 08/19/17 20:36 Dose: Not Given Sodium Bicarbonate (Bicarbonate, Sodium) 650 mg PER TUBE .PER PROTOCOL PRN PRN Reason: ENTERAL TUBE OCCLUSION MAR Reviewed: Yes Vital Signs and I&O: Vital Signs Temp 98.2 F 08/20/17 04:00 Pulse 85 08/20/17 06:50 Resp 30 H 08/20/17 06:47 BP 181/80 H 08/20/17 05:07 Pulse Ox 97 08/20/17 06:47 Intake & Output 08/19/17 08/20/1718 18:59 06:59 18:59 Intake Total 869 Output Total 4527 766 Balance -1196 -766 Weight 174 lb 9.698 oz Intake: Intake, IV Amount 869 Sodium Chloride 0.9% 1, 869 000 ml @ 70 mls/hr IV . [id number] [facility] Rx#:[id number] Output: Output, Schmid 2 761 Other: Voiding Method Indwelling Catheter Indwelling Catheter Vent Setting: On Bipap CCU Progress Note: Exam - Physical Exam Deviation from normal: Resp distress HEENT: PERRLA, sclera anicteric Neck: no nodes, no JVD Cardiovascular: RRR Respiratory: clear to auscultation bilaterally Gastrointestinal: soft, non-tender Musculoskeletal: edema present Neurological: non-focal, moves all 4 limbs Psychiatric: normal affect, A&O x 3 Deviation from normal: bruised throughout CCU Progress Note: Data - Labs Result Diagrams: 08/20/17 04:30 08/20/17 04:30 Lab results: Laboratory Results 08/18/17 08/18/17 08/18/17 11:57 15:35 21:48 WBC RBC Hgb Hct MCV MCH MCHC RDW Plt Count MPV Neutrophils % (Manual) Band Neuts % (Manual) Lymphocytes % (Manual) Reactive Lymphs % Monocytes % (Manual) Metamyelocytes % (Man) Plt Morphology Comment RBC Morph Comment Specimen Type Puncture Site Bicarbonate Actual ABG pH ABG pCO2 ABG pO2 ABG O2 Sat Calc/Anthony ABG O2 Content ABG Base Excess ABG Hematocrit ABG Hemoglobin ABG Oxyhemoglobin ABG Carboxyhemoglobin ABG Methemoglobin Aamir Test A-a O2 Gradient Ionized Calcium Mode of Support Inspired O2 Pressure Support PEEP or CPAP Sodium Potassium Chloride Carbon Dioxide Anion Gap BUN Creatinine Estimated GFR (MDRD) Glucose POC Glucose 181 H 118 H 230 H Calcium 08/19/17 08/19/17 08/19/17 04:31 04:31 04:57 WBC 14.4 H RBC 3.30 L Hgb 10.1 L Hct 30.1 L MCV 91.3 MCH 30.5 MCHC 33.4 RDW 11.9 Plt Count 243 MPV 7.0 L Neutrophils % (Manual) 74 Band Neuts % (Manual) 9 Lymphocytes % (Manual) 6 L Reactive Lymphs % 5 Monocytes % (Manual) 5 Metamyelocytes % (Man) 1 H Plt Morphology Comment Appears Adequate RBC Morph Comment Normal Specimen Type Puncture Site Bicarbonate Actual ABG pH ABG pCO2 ABG pO2 ABG O2 Sat Calc/Anthony ABG O2 Content ABG Base Excess ABG Hematocrit ABG Hemoglobin ABG Oxyhemoglobin ABG Carboxyhemoglobin ABG Methemoglobin Aamir Test A-a O2 Gradient Ionized Calcium Mode of Support Inspired O2 Pressure Support PEEP or CPAP Sodium 137 Potassium 3.7 Chloride 101 Carbon Dioxide 29 Anion Gap 11 BUN 30 H Creatinine 0.86 Estimated GFR (MDRD) 64 Glucose 235 H POC Glucose 232 H Calcium 8.9 08/19/17 08/19/17 08/19/17 07:00 12:26 16:22 WBC RBC Hgb Hct MCV MCH MCHC RDW Plt Count MPV Neutrophils % (Manual) Band Neuts % (Manual) Lymphocytes % (Manual) Reactive Lymphs % Monocytes % (Manual) Metamyelocytes % (Man) Plt Morphology Comment RBC Morph Comment Specimen Type ARTERIAL Puncture Site RRA Bicarbonate Actual 24.0 ABG pH 7.44 ABG pCO2 36.0 ABG pO2 85.6 ABG O2 Sat Calc/Anthony 97.4 ABG O2 Content 14.8 L ABG Base Excess 0.1 ABG Hematocrit ABG Hemoglobin 10.9 L ABG Oxyhemoglobin ABG Carboxyhemoglobin 1.1 ABG Methemoglobin 0.4 Aamir Test POSITIVE A-a O2 Gradient 154.600 H Ionized Calcium 1.2 Mode of Support PSV Inspired O2 40 Pressure Support 10 PEEP or CPAP 5.0 Sodium 139 Potassium 3.5 L Chloride 100 Carbon Dioxide Anion Gap BUN Creatinine Estimated GFR (MDRD) Glucose POC Glucose 182 H 168 H Calcium 08/19/17 08/20/17 08/20/17 21:20 02:20 04:30 WBC RBC Hgb Hct MCV MCH MCHC RDW Plt Count MPV Neutrophils % (Manual) Band Neuts % (Manual) Lymphocytes % (Manual) Reactive Lymphs % Monocytes % (Manual) Metamyelocytes % (Man) Plt Morphology Comment RBC Morph Comment Specimen Type ART Puncture Site LRA Bicarbonate Actual 29.5 H ABG pH 7.34 L ABG pCO2 55.5 H ABG pO2 59.5 L ABG O2 Sat Calc/Anthony 90.5 L ABG O2 Content ABG Base Excess 2.8 H ABG Hematocrit 37.9 ABG Hemoglobin 11.7 L ABG Oxyhemoglobin 88.8 L ABG Carboxyhemoglobin 1.3 ABG Methemoglobin 0.6 Aamir Test POSITIVE A-a O2 Gradient 127.805 H Ionized Calcium 1.2 Mode of Support NIV Inspired O2 36 Pressure Support 12 PEEP or CPAP 5.0 Sodium 158 H 141 Potassium 3.0 L 4.2 Chloride 123 H 101 Carbon Dioxide 30 Anion Gap 14 BUN 31 H Creatinine 0.76 Estimated GFR (MDRD) 74 Glucose 228 H POC Glucose 204 H Calcium 9.3 08/20/17 04:30 WBC 23.8 H RBC 3.87 L Hgb 11.6 L Hct 35.3 L MCV 91.1 MCH 30.0 MCHC 32.9 RDW 11.9 Plt Count 363 MPV 6.6 L Neutrophils % (Manual) 86 H Band Neuts % (Manual) 6 Lymphocytes % (Manual) 6 L Reactive Lymphs % Monocytes % (Manual) 2 Metamyelocytes % (Man) Plt Morphology Comment RBC Morph Comment Specimen Type Puncture Site Bicarbonate Actual ABG pH ABG pCO2 ABG pO2 ABG O2 Sat Calc/Anthony ABG O2 Content ABG Base Excess ABG Hematocrit ABG Hemoglobin ABG Oxyhemoglobin ABG Carboxyhemoglobin ABG Methemoglobin Aamir Test A-a O2 Gradient Ionized Calcium Mode of Support Inspired O2 Pressure Support PEEP or CPAP Sodium Potassium Chloride Carbon Dioxide Anion Gap BUN Creatinine Estimated GFR (MDRD) Glucose POC Glucose Calcium - ABG Interpretation Attestation: I reviewed and interpreted this ABG. ABG Results: ABG pH 7.34 (7.35-7.45) L 08/20/17 02:20 ABG pCO2 55.5 mmHg (35.0-45.0) H 08/20/17 02:20 ABG O2 Sat Calc/Anthony 90.5 % (94.0-100.0) L 08/20/17 02:20 ABG Base Excess 2.8 mEq/L (0 (+/-) 2.5) H 08/20/17 02:20 Interpretation: respiratory acidosis - Radiology Interpretation Chest x-ray Status: image reviewed by me (jerrod) CCU Progress Note: A/P - Problems (1) Acute respiratory failure with hypoxia and hypercapnia Current Visit: Yes Status: Resolved Code(s): J96.01 - ACUTE RESPIRATORY FAILURE WITH HYPOXIA; J96.02 - ACUTE RESPIRATORY FAILURE WITH HYPERCAPNIA (2) COPD exacerbation Current Visit: No Status: Acute Code(s): J44.1 - CHRONIC OBSTRUCTIVE PULMONARY DISEASE W (ACUTE) EXACERBATION - Time Spent with Patient Time (minutes): 30 (min cc time) - Plan Plan: Start Precedex drip Cont steroids/nebs/abx Continue BiPAP, but may end up reintubating
[2017-08-20] MEDS: HumaLOG 300 UNITS/3 ML VIAL SC PRN ×2 (07:27→17:09)
[2017-08-20] MEDS: glipiZIDE 5 MG TAB PO SCH (09:00)
[2017-08-20] MEDS: Pantoprazole 40 MG GRANULES PACKET PO SCH (09:00)
[2017-08-20] MEDS: Lisinopril/Hydrochlorothiazide 20 mg/12.5 mg Tablet PO SCH ×2 (09:00→20:57)
--- NOTE | 2017-08-20 09:06 | RAD ---
AP CHEST: Indication: Intubation. Comparison: 08-19-17 FINDINGS/IMPRESSION: Patient has been intubated. COPD change stable. Cardiomegaly persists. No focal consolidation, pleura l effusion, or pneumothorax is evident. No acute osseous abnormality is evident. POS: H
[2017-08-20] MEDS: Arformoterol 15 MCG/2 ML NEB NEB SCH ×2 (10:25→18:27)
[2017-08-20] MEDS: Sodium Chloride 0.9% 1,000 ML IV SCH (14:20)
[2017-08-20] MEDS: Morphine 4 MG/ML Carpuject SLOW IVP PRN ×2 (14:39→22:37)
[2017-08-20] MEDS ORDERED: Morphine 4 MG/ML Carpuject SLOW IVP PRN (16:43)
[2017-08-20] MEDS ORDERED: Lorazepam 2 MG/ML VIAL SLOW IVP PRN (16:44)
--- NOTE | 2017-08-20 20:47 | PDOC.PN ---
- Subjective Encounter Start Date: 08/20/17 Encounter Start Time: 19:30 Subjective: f/u resp failure requiring BiPAP currently. Palliative care consulted for -: goals of care due to overall decline and co-morbid status. - Objective Resuscitation Status: Resuscitation Status DNR:Do Not Resuscitate MAR Reviewed: Yes Vital Signs & Weight: Vital Signs (12 hours) Temp Pulse Resp BP Pulse Ox 08/20/17 18:28 87 08/20/17 15:04 91 08/20/17 15:03 91 33 H 94 L 08/20/17 12:00 99 F 08/20/17 10:28 91 08/20/17 10:25 84 33 H 98 08/20/17 10:24 88 35 H 98 08/20/17 09:00 91 134/80 Weight Admit Weight 172 lb Weight 171 lb 4.787 oz Most Recent Monitor Data Heart Rate from ECG 87 NIBP 166/80 NIBP BP-Mean 142 Respiration from ECG 34 SpO2 97 I&O: 08/19/17 08/20/17 08/21/17 06:59 06:59 06:59 Intake Total 2475.6 1792 913.3 Output Total 1558 2831 485 Balance 917.6 -1039 428.3 Result Diagrams: 08/20/17 04:30 08/20/17 04:30 Additional Labs: Accuchecks 08/20/17 08/20/17 08/20/17 17:01 16:25 11:42 POC Glucose 166 H 340 H 129 H 08/20/17 08/19/17 07:28 21:20 POC Glucose 177 H 204 H Microbiology 08/16/17 09:17 Venous blood - Right Hand Blood Culture - Preliminary NO GROWTH AT 48 HOURS 08/16/17 09:08 Venous blood - Left Hand Blood Culture - Preliminary NO GROWTH AT 48 HOURS Laboratory Tests 08/18/17 08/19/17 08/20/17 03:22 04:31 04:30 WBC 17.6 H 14.4 H Hgb 10.1 L 10.1 L Neutrophils % 91.2 H Neutrophils % (Manual) 74 86 H Radiology Reviewed by me: Yes (PCXR - no acute infiltrate) EKG Reviewed by me: Yes (Tele - SR) Phys Exam - Physical Examination BiPAP mask in place HEENT: oral pharynx no lesions Neck: no JVD, supple diminished in bases Cardiovascular: RRR Gastrointestinal: soft, non-tender, no distention, positive bowel sounds Neurological: normal sensation, moves all 4 limbs Skin: normal turgor, cap refill <2 seconds Dx/Plan (1) Acute respiratory failure with hypoxia and hypercapnia Code(s): J96.01 - ACUTE RESPIRATORY FAILURE WITH HYPOXIA; J96.02 - ACUTE RESPIRATORY FAILURE WITH HYPERCAPNIA Status: Acute Comment: Requiring BiPAP NIMV, continue Duonebs, Solumedrol, Levaquin (2) COPD exacerbation Code(s): J44.1 - CHRONIC OBSTRUCTIVE PULMONARY DISEASE W (ACUTE) EXACERBATION Status: Acute Comment: See above, continue Brovana and Pulmicort (3) CAD (coronary artery disease) Code(s): I25.10 - ATHSCL HEART DISEASE OF [place] CORONARY ARTERY W/O ANG PCTRS Status: Chronic Qualifiers: Coronary Disease-Associated Artery/Lesion type: [place] artery [place] vs. transplanted heart: [place] heart Associated angina: without angina Qualified Code(s): I25.10 - Atherosclerotic heart disease of [place] coronary artery without angina pectoris (4) DM type 2 (diabetes mellitus, type 2) Status: Chronic Qualifiers: Diabetes mellitus complication status: without complication Diabetes mellitus custodial insulin use: without custodial use Qualified Code(s): E11.9 - Type 2 diabetes mellitus without complications Comment: Continue Glipizide and ISS (5) Tobacco dependence Code(s): F17.200 - NICOTINE DEPENDENCE, UNSPECIFIED, UNCOMPLICATED Status: Chronic - Plan continue antibiotics, PT/OT, nephrology social worker, speech therapy, respiratory therapy, DVT proph w/SCDs Continue pulmonary supportive measures -: Trial of Presedex per Pulmonology -: Continue Solumedrol 20mg IV q6h -: Continue Levaquin -: AM lab: BMP, CBC * Palliative care consult appreciated
[2017-08-20] MEDS: Rosuvastatin 10 MG TAB PO SCH (20:57)
[2017-08-20] MEDS: Amlodipine 5 MG TAB PO SCH (20:57)
[2017-08-21] MEDS: Morphine 4 MG/ML Carpuject SLOW IVP PRN ×2 (04:43→14:42)
[2017-08-21] MEDS: Sodium Chloride 0.9% 1,000 ML IV SCH (04:47)
[2017-08-21 05:09] LABS: Anion Gap 12 mmol/L (10-20); BUN (Urea Nitrogen) 40 mg/dL (9.8-20.1); Calc. Creatinine Clearance 84 mL/min (70-130); Calcium 8.9 mg/dL (7.8-10.44); Carbon Dioxide 31 mmol/L (23-31); Chloride 104 mmol/L (98-107); Estimated GFR-MDRD 82; Glucose 182 mg/dL (83-110); Sodium 143 mmol/L (136-145)
[2017-08-21 06:09] LABS: Band 11 % (5-11); Hemoglobin 10.9 g/dL (12.0-16.0); Lymphocytes 5 % (21-51); MDiff Complete? YES; Mean Corpuscular HGB CONC 32.5 g/dL (32.0-36.0); Mean Corpuscular Hemoglobin 29.6 pg (27.0-31.0); Mean Corpuscular Volume 91.2 fl (81.0-99.0); Mean Platelet Volume 6.7 fL (7.4-10.4); Metamyelocyte 1 % (0-0); Monocytes 7 % (0-10); Myelocyte 2 % (0-0); Neutrophil 74 % (42-75); Platelet Count 298 thou/uL (130-400); RBC Distribution Width 11.9 % (11.5-14.5); Red Blood Cell (RBC) Count 3.69 mill/uL (4.20-5.40); White Blood Cell (WBC) Count 15.8 thou/uL (4.8-10.8)
[2017-08-21] MEDS: Labetalol HCl 100 MG/20 ML VIAL SLOW IVP PRN (06:09)
[2017-08-21 06:10] VITALS: BP 189/99
[2017-08-21] MEDS: HumaLOG 300 UNITS/3 ML VIAL SC PRN (06:12)
[2017-08-21] MEDS: Budesonide 0.5 MG/2 ML NEB INH SCH (06:41)
[2017-08-21] MEDS: Arformoterol 15 MCG/2 ML NEB NEB SCH (06:41)
[2017-08-21 08:20] VITALS: TEMP 99.2
--- NOTE | 2017-08-21 08:39 | PRG ---
DATE OF SERVICE: 08/21/2017 Ms. Jett continues to do poorly. Her and son are at the bedside. She looks to be comforta ble, but is continuing to need the BiPAP. She is scheduled to go over to the inpatient hospice unit at 9:30 this morning. PHYSICAL EXAMINATION: VITAL SIGNS: Temperature is 99.2, pulse 85, blood pressure 182/90. She is obtunded and not very res ponsive to any stimuli. HEENT: Unremarkable. NECK: No adenopathy, no JVD. LUNGS: Coarse breath sounds. CARDIAC: S1 and S2 regular. ABDOMEN: Soft. EXTREMITIES: Edematous. LABORATORY: White blood cell count 15.8, hematocrit 33.6, platelet count 298. Sodium 143, potassium 4, BUN 40, creatinine 0.6, glucose 182. ASSESSMENT: 1. Chronic obstructive pulmonary disease exacerbation. 2. End-stage chronic obstructive pulmonary disease. PLAN: The family has gone the route of palliative care. Comfort medications have been written for. It is expected that she will succumb fairly quickly once the mechanical ventilation is removed.
[2017-08-21] MEDS: hydrALAZINE 20 MG/ML VIAL SLOW IVP PRN (10:12)
--- NOTE | 2017-08-22 00:15 | DIS ---
DATE OF ADMISSION: 08/16/2017 DATE OF DISCHARGE: 08/21/2017 DISCHARGE DIAGNOSES: 1. Acute on chronic hypoxemic hypercapnic respiratory failure. 2. End-stage chronic obstructive pulmonary disease with exacerbation. 3. Coronary artery disease. 4. Diabetes mellitus type 2. 5. Tobacco abuse. CONSULTATIONS: Dr. West with Pulmonology Service. PERTINENT LABORATORY AND X-RAY FINDINGS: Lactic acid level ranged between 2.5 to 3.0, BNP 35. CBC s howed a white blood cell count ranging between 13.4 to 23.8, hemoglobin ranged between 10.1 to 12.0, blood cultures x2 from 08/16/2017 showed no growth at 5 days. Portable chest x-ray dated 08/16/2017, showed pulmonary vascular prominence. Portable chest x-ray dated 08/16/2017 at 20:20 p.m. showed en dotracheal tube beyond the level of the clavicles. Nasogastric tube in place. Portable chest x-ray dated 08/20/2017, showed changes consistent with chronic obstructive pulmonary disease. HOSPITAL COURSE: The patient was admitted to the critical care unit after initially presenting with acute hypoxemic respiratory failure. The patient with a significant history of chronic obstructive p ulmonary disease and chronic hypoxemic respiratory failure on home oxygen, presenting with COPD exace rbation associated lactic acidosis requiring initial BiPAP noninvasive mechanical ventilation. The p atient received aggressive pulmonary supportive measures in the critical care unit; however, continue d to decompensate requiring control the airway with intubation and placement on mechanical ventilatio n. The patient continued on mechanical ventilation extubating on 08/19/2017. The patient continued to require BiPAP noninvasive mechanical ventilation for adequate aeration and oxygenation; however, r emained clinically weak and clinically declining. Due to patient's overall comorbid status and end-s tage COPD, discussions were had regarding palliative care services. The family and patient decided t o pursue comfort care through hospice services. The patient was transferred to [facility] inpatient facility on 08/21/2017. DISCHARGE MEDICATIONS: 1. Ventolin HFA 1 puff inhaled q.4 hours p.r.n. 2. Amlodipine 5 mg 1 tablet p.o. daily. 3. Clonidine 0.1 mg p.o. b.i.d. 4. Cardizem 120 mg p.o. daily. 5. Flonase nasal spray 1 spray in each naris b.i.d. 6. Gabapentin 800 mg p.o. t.i.d. 7. Glipizide 5 mg p.o. daily. 8. [place] 10/325 mg 1 tab p.o. t.i.d. 9. Lisinopril/hydrochlorothiazide 20/12.5 mg 1 tab p.o. b.i.d. 10. Spiriva HandiHaler 18 mcg inhaled daily. FOLLOWUP: The patient to follow at [facility]. CONDITION ON DISCHARGE: Guarded. ACTIVITY: Ad ravi. DIET: ADA. CODE STATUS: Do not resuscitate. DISPOSITION: Discharged to [facility] on 08/21/2017.
== END 2017-08-21 16:59 | disposition hospice, inpatient (51) | DRG 208 ==
LOC: ERS 08:56 → CCU 12:21
PROVIDERS: ADMIT Internal Medicine; ATTEND Internal Medicine
PROC: 0BH17EZ Insertion of Endotracheal Airway into Trachea, Via Natural or Artificial Opening (ICD-10-PCS; principal; 2017-08-16)
PROC: 5A1945Z Respiratory Ventilation, 24-96 Consecutive Hours (ICD-10-PCS; 2017-08-16)
PROC: 5A09457 Assistance with Respiratory Ventilation, 24-96 Consecutive Hours, Continuous Positive Airway Pressure (ICD-10-PCS; 2017-08-19)
DX: J96.21 Acute and chronic respiratory failure with hypoxia (principal); E87.2 Acidosis; E11.65 Type 2 diabetes mellitus with hyperglycemia; J44.1 Chronic obstructive pulmonary disease with (acute) exacerbation; I48.0 Paroxysmal atrial fibrillation; Z99.81 Dependence on supplemental oxygen; J96.22 Acute and chronic respiratory failure with hypercapnia; I25.10 Atherosclerotic heart disease of native coronary artery without angina pectoris; E78.5 Hyperlipidemia, unspecified; Z87.891 Personal history of nicotine dependence; Z95.5 Presence of coronary angioplasty implant and graft; K21.9 Gastro-esophageal reflux disease without esophagitis; H40.9 Unspecified glaucoma; Z86.010 Personal history of colon polyps; Z51.5 Encounter for palliative care; Z66 Do not resuscitate; Z79.4 Long term (current) use of insulin; G89.4 Chronic pain syndrome
CPT/HCPCS: 36415; 36416; 71045; 80048; 80053; 82553; 82805; 83605; 83880; 84484; 85025; 87040; 93005; 94002; 94003; 94640; 94660; 94760; 96365; 96372; 96375; 99213; G0463; J0360; J0456; J1030; J1630; J1815; J1956; J2060; J2250; J2270; J2704; J2920; J3010; J3475; J7050; J7620; J7626